=== PATIENT | female | born 1940 | race Caucasian/White ===

== ENCOUNTER → 2018-02-08 | Outpatient (CLI) | payer MEDICARE, BC ==
[~2018-02-08] MED LIST: CALCIUM PO; CHLOR TABS PO; HYDR200T72 PO; LEVO25TA4 PO; SULF500T36 PO; VITA150T PO
== END | disposition home or self-care (01) ==
LOC: RAD 12:16
PROVIDERS: ATTEND Orthopaedic Surgery
DX: S62.024A Nondisplaced fracture of middle third of navicular [scaphoid] bone of right wrist, initial encounter for closed fracture (principal); X58.XXXA Exposure to other specified factors, initial encounter

== ENCOUNTER → 2020-06-05 | Outpatient (CLI) | payer MEDICARE, BC | END | disposition home or self-care (01) | LOC: STAR 14:26 | PROVIDERS: ATTEND Anesthesiology | DX: Z01.812 Encounter for preprocedural laboratory examination (principal); Z20.828 Contact with and (suspected) exposure to other viral communicable diseases | CPT/HCPCS: 87635 ==